=== PATIENT | female | born 1960 | race Caucasian/White ===

== ENCOUNTER 2021-10-10 11:51 | Emergency (ER) | payer MEDICARE, OTHER ==
[2021-10-10 12:53] LABS: HEMOGLOBIN 15.1 gm/dl (12.3-15.3); RED BLOOD COUNT 4.97 M/UL (4.00-5.10); WHITE BLOOD COUNT 8.9 K/UL (4.5-11.0)
[2021-10-10 13:14] LABS: BUN/CREATININE RATIO 20 (0-10)
[2021-10-10] MEDS ORDERED: PREDNISONE 20 M20 MG GT (13:28)
== END 2021-10-10 14:04 | disposition home or self-care (01) ==
LOC: ER1 11:51
PROVIDERS: Physician Assistant
DX: J44.1 Chronic obstructive pulmonary disease with (acute) exacerbation (principal); I25.10 Atherosclerotic heart disease of native coronary artery without angina pectoris; I10 Essential (primary) hypertension; F17.210 Nicotine dependence, cigarettes, uncomplicated
CPT/HCPCS: 36600; 71045; 80053; 81001; 82550; 82553; 82803; 83605; 83880; 84484; 85025; 85379; 93005; 96374; 99285; J2930